=== PATIENT | male | born 1960 | race Caucasian/White ===

== ENCOUNTER 2020-12-12 19:09 | Emergency (ER) | payer OTHER ==
[~2020-12-12] VITALS: Ht 188 cm; Wt 94.3 kg
[~2020-12-12 19:09] MED LIST: ASPIR 8181 MG PO; BUPROPION XL300 MG PO; LISINOPRIL-HCT1 EACH PO; LORATADINE10 MG PO; OMEPRAZOLE20 MG PO; RESTASIS1 DROP OD; VITAMIN D400 UNI1 PO
== END 2020-12-12 20:36 | disposition home or self-care (01) ==
LOC: ED 19:09
DX: S81.811A Laceration without foreign body, right lower leg, initial encounter (principal); Z23 Encounter for immunization; W26.0XXA Contact with knife, initial encounter; I10 Essential (primary) hypertension; Z87.891 Personal history of nicotine dependence; Z79.899 Other long term (current) drug therapy; Z79.82 Long term (current) use of aspirin
CPT/HCPCS: 90471; 90715; 99282

== ENCOUNTER 2021-06-15 06:21 | Day surgery (SDC) | payer OTHER ==
[~2021-06-15] VITALS: Ht 182.9 cm; Wt 95.7 kg
--- NOTE | 2021-06-16 06:17 | OR ---
[facility] [address] [place] [place], [place] [address] Signed DATE OF OPERATION: 06/15/2021 SURGEON: Divya Villasenor MD PREOPERATIVE DIAGNOSES: 1. Iron-deficiency anemia. 2. Gastroesophageal reflux disease. 3. Colon cancer in his father in his 70s. 4. Daughter with rectal cancer at age 26. 5. Hemorrhoids. 6. Personal history of colonic polyps, age 46, 49, and 55. POSTOPERATIVE DIAGNOSES: 1. Hiatal hernia (36-33 cm). 2. GE junction at 32 cm. 3. Mild distal esophagitis with healing shallow ulcer. 4. A 4 mm polyp at 70 cm. 5. Minimal internal hemorrhoids. 6. 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 PROCEDURES: 1. Esophagogastroduodenoscopy with CLOtest and biopsies of the antrum and GE junction. 2. Colonoscopy with hot biopsy. ESTIMATED BLOOD LOSS: None. INDICATIONS: Julienne is a 61-year-old gentleman, asked to see me for both upper and lower endoscopy. More recently, he was found to have iron-deficiency anemia. He also has a history of acid reflux and he does have breakthrough symptoms on his Prilosec. In addition, his father had colon cancer in his late 70s and underwent surgery. He actually from something else, but did fine with the colon cancer. He did not require any chemotherapy. In addition, his daughter had rectal cancer at age [address] Davis did perform her surgery and she is doing well. Julienne is known to have some hemorrhoids along with colonic polyps removed at age 46, 49, and 55. He really has no specific lower GI complaints. In the office, I gave him pamphlets on both upper and lower endoscopy. We had reviewed the nature of the two tests. He understands there is risk including, but not limited to gas bloating, crampy abdominal pain, bleeding, perforation requiring surgery, and missed diagnosis. He also understands the need for the IV Electronically Signed By: DIVYA VILLASENOR MD 06/16/21 0617 PATIENT NAME: JULIENNE LARSEN OPERATIVE REPORT DATE OF : 62 REPORT #: [id number] PHYSICIAN: DIVYA VILLASENOR MD PCP: NO PRIMARY CARE PHYSICIAN REPORT IS CONFIDENTIAL AND NOT TO BE RELEASED WITHOUT AUTHORIZATION [facility] [address] [place], [place] [address] Signed conscious sedation. He always does well with Versed and fentanyl. He had expressed understanding, wished to proceed. DESCRIPTION OF PROCEDURE: Julienne was taken into our endoscopy suite and placed in the supine semi-recumbent position. The posterior oropharynx was anesthetized with lidocaine spray. A bite block was utilized for the case. He was given a total of 8 mg of Versed and 100 mcg of fentanyl to cover both cases. The adult gastroscope had been introduced and advanced down the third portion of the duodenum without difficulty. The duodenum and pyloric channel were unremarkable. Overall, the stomach was unremarkable. We went and took a biopsy of the antrum for CLOtest as well as pathologic review. Upon retroflexion of scope, we could easily see his moderate-sized hiatal hernia, it measured out roughly from 36 cm back to 33 cm. He does have a little disruption to the Z-line with esophagitis. There appears to be a small ulcer off to the side, it was healing. We went and took a biopsy along the Z-line. There was no Archibald's mucosa. His middle and upper esophagus were unremarkable. After this, the gas was suctioned out. The gastroscope removed. Julienne tolerated the upper endoscopy quite well. Julienne rotated into the left lateral decubitus position. He was maintained on IV sedation with the Versed and fentanyl. A digital rectal exam was performed. His prostate was indurated and the right was certainly larger than the left. After this, the adult colonoscope was introduced and advanced under direct visualization of camera. We did not see much in the way of any external hemorrhoids. The scope was advanced into the cecum without difficulty. As always, his prep was quite excellent. We could easily see his appendiceal orifice and the ileocecal valve. The scope was then slowly withdrawn. We took several pictures throughout for photodocumentation. He appears to have some very mild tiger striping throughout the colon. That would suggest he has mild melanosis coli. There was no diverticulosis. We saw one tiny polyp up at 70 cm. It was easily removed with the help of hot biopsy forceps. The rectum was unremarkable. Upon retroflexion of scope, he has minimal internal hemorrhoid columns. After this, the gas was suctioned out, colonoscope removed. Julienne tolerated the procedure quite well. RECOMMENDATIONS: I will see Julienne back in my office in 7 to 14 days to review his results. It appears that his esophagitis is the source of his anemia. He could consider increasing the medical therapy and/or fundoplication if his anemia persist. He will stay on the five year plan for his colonoscopies. Divya Villasenor MD Electronically Signed By: DIVYA VILLASENOR MD 06/16/21 0617 PATIENT NAME: JULIENNE LARSEN OPERATIVE REPORT DATE OF : 62 REPORT #: [id number] PHYSICIAN: DIVYA VILLASENOR MD PCP: NO PRIMARY CARE PHYSICIAN REPORT IS CONFIDENTIAL AND NOT TO BE RELEASED WITHOUT AUTHORIZATION [facility] [address] [place], [place] [address] Signed ALB/MODL /[id number] cc: Patient Chart MD Divya Gu MD Copies: IFRAH ROME MD, ANDREW L MD ~ Electronically Signed By: DIVYA VILLASENOR MD 06/16/21 0617 PATIENT NAME: JULIENNE LARSEN OPERATIVE REPORT DATE OF : 62 REPORT #: [id number] PHYSICIAN: DIVYA VILLASENOR MD PCP: NO PRIMARY CARE PHYSICIAN REPORT IS CONFIDENTIAL AND NOT TO BE RELEASED WITHOUT AUTHORIZATION
--- NOTE | 2021-06-17 15:41 | PATH ---
[facility] [address] [place], [place] [address] Signed SPECIMEN(S): A ANTRUM/PYLORUS BIOPSY SPECIMEN(S): B GE JUNCTION BIOPSY SPECIMEN(S): C COLON POLYP AT 70 CM SPECIMEN SOURCE: A. ANTRUM/PYLORUS BIOPSY B. GE JUNCTION BIOPSY C. COLON POLYP AT 70 CM CLINICAL HISTORY: Family Hx colon CA, hemorrhoids, GERD, anemia. Post Op: Hiatal hernia, mild esophagitis, polyp, internal hemorrhoids. FINAL PATHOLOGIC DIAGNOSIS: A. Stomach, antrum/pylorus, biopsy: - No significant histopathologic alterations. B. GE junction, biopsy: - Reflux esophagitis. - No evidence of Archibald's esophagus. C. Colon, 70 cm, polypectomy: - Tubular adenoma. - There is no evidence of high-grade dysplasia or malignancy. COMMENT: Regarding specimen A, the sections through the gastric biopsies show fragments of histologically unremarkable antral mucosa. There is no evidence of acute or chronic inflammation. There is no evidence of H. pylori, intestinal metaplasia, abnormal infiltrates or neoplasia. Regarding specimen B, the sections through the biopsy show strips of reactive appearing squamous mucosa with basal cell hyperplasia. The epithelium is infiltrated by lymphocytes and small numbers of eosinophils. No glandular mucosa or intestinal metaplasia is identified. A special stain (Alcian Blue/PAS) highlights the thickened basal layer and confirms the absence of glandular mucosa. PRAKASH:louise:C2NR MICROSCOPIC EXAMINATION: Histologic sections of all submitted blocks are examined by light microscopy. These findings, together with the gross examination, support the pathologic diagnosis. PATIENT NAME: JULIENNE LARSEN PATHOLOGY DATE OF : 62 REPORT #: [id number] PHYSICIAN: KATE GORDON PCP: NO PRIMARY CARE PHYSICIAN REPORT IS CONFIDENTIAL AND NOT TO BE RELEASED WITHOUT AUTHORIZATION [facility] [address] [place], [place] [address] Signed GROSS DESCRIPTION: Three specimens are received in three containers, labeled "JK." A. The specimen, labeled "JK, antrum biopsy," is received in formalin and consists of one hugo soft tissue fragment that measures 0.2 cm in greatest dimension. The specimen is entirely submitted in cassette (A1). B. The specimen, labeled "JK, GE junction biopsy," is received in formalin and consists of one hugo soft tissue fragment that measures 0.3 cm in greatest dimension. The specimen is entirely submitted in cassette (B1). C. The specimen, labeled "JK, colon polyp at 70 cm," is received in formalin and consists of one hugo soft tissue fragment that measures 0.2 cm in greatest dimension. The specimen is entirely submitted in cassette (C1). JS (under the direct supervision of a pathologist) The Gross Description was prepared using a voice recognition system. The report was reviewed for accuracy; however, sound-alike word errors, addition and/or deletions may occur. If there is any question about this report, please contact Client Services. PERFORMING LABORATORY: The technical component was performed by [facility], [address] [place] [id number] (CLIA# [id number]). The professional interpretation was performed by [facility], [facility], [address] [place] [address] (CLIA#: [id number]). Diagnostician: Matti Cardoza MD Pathologist Electronically Signed 06/17/2021 Copies: ~ PATIENT NAME: JULIENNE LARSEN PATHOLOGY DATE OF : 62 REPORT #: [id number] PHYSICIAN: KATE GORDON PCP: NO PRIMARY CARE PHYSICIAN REPORT IS CONFIDENTIAL AND NOT TO BE RELEASED WITHOUT AUTHORIZATION
== END 2021-06-15 08:43 | disposition home or self-care (01) ==
LOC: OPS 06:21 → DS 06:21 → OPS 07:00 → DS 07:00 → OPS 08:43
PROVIDERS: ATTEND Colon & Rectal Surgery
PROC: 0DB68ZX Excision of Stomach, Via Natural or Artificial Opening Endoscopic, Diagnostic (ICD-10-PCS; principal; 2021-06-15 07:00)
PROC: 0DBE8ZX Excision of Large Intestine, Via Natural or Artificial Opening Endoscopic, Diagnostic (ICD-10-PCS; 2021-06-15 07:00)
DX: K21.00 Gastro-esophageal reflux disease with esophagitis, without bleeding (principal); D12.6 Benign neoplasm of colon, unspecified; D50.9 Iron deficiency anemia, unspecified; K64.8 Other hemorrhoids; Z80.0 Family history of malignant neoplasm of digestive organs; I10 Essential (primary) hypertension; F33.41 Major depressive disorder, recurrent, in partial remission; Z88.1 Allergy status to other antibiotic agents; K64.4 Residual hemorrhoidal skin tags; K44.9 Diaphragmatic hernia without obstruction or gangrene
CPT/HCPCS: 36415; 87077; 99153; G0500; J2250; J3010; J7121

== ENCOUNTER 2023-03-14 06:32 | Day surgery (SDC) | payer OTHER ==
[~2023-03-14] VITALS: Ht 188 cm; Wt 99.3 kg
[~2023-03-14 06:32] MED LIST changes: +SUCRALFATE1 GM PO
[2023-03-14 06:50] VITALS: BP 143/86
--- NOTE | 2023-03-14 07:37 | NUR ---
ROUNDS. PT GONE FOR PROCEDURE. PROVIDED PRAYER.
[2023-03-14 08:17] VITALS: BP 116/79
--- NOTE | 2023-03-14 08:34 | NUR ---
03/14/23 0834 Marissa Gibbs 0755 PT ARRIVED IN PACU WIDE AWAKE WITH NO C/O'S. 0810 DR AT BEDSIDE. ALL QUESTIONS ANSWERED. 0815 SIPPING ON WATER. 0820 DC INSTRUCTIONS GIVEN. 0825 LEFT VIA W/C.
--- NOTE | 2023-03-14 09:37 | OR ---
[facility] [address] [place], [place] [address] Signed DATE OF OPERATION: 03/14/2023 SURGEON: Divya Villasenor MD PREOPERATIVE DIAGNOSES: 1. Recurrent iron-deficiency anemia. 2. Gastroesophageal reflux disease. 3. Hiatal hernia (3 cm). 4. Gastroesophageal junction at 32 cm. 5. History of distal esophagitis with shallow ulcer in 2021. POSTOPERATIVE DIAGNOSES: 1. Hiatal hernia (25-32) cm. 2. Gastroesophageal junction at 32 cm. 3. Small diverticulum at gastroesophageal junction biopsy and clip. 4. Small inflamed polyp at gastroesophageal junction (snare). 5. Proximal antral polyp (snare). 6. Mild diffuse gastritis. PROCEDURES: 1. Esophagogastroduodenoscopy with CLOtest and biopsies of the antrum, antral polyp, gastroesophageal junction and gastroesophageal junction polyp as well as base of gastroesophageal junction polyp. 2. Application of clip at gastroesophageal junction. ESTIMATED BLOOD LOSS: None. INDICATIONS: Julienne is a 62-year-old gentleman, asked to see me for repeat upper endoscopy. He has developed recurrent iron-deficiency anemia. He usually comes every five years for his colonoscopies. He has had at least four different colonoscopies starting around age 46. He generally has small polyps removed. He has been a combination of hyperplastic, serrated adenomatous and tubular adenomatous polyps. They have all been under 10 mm in size. He has internal and external hemorrhoids. In June of 2021, we helped him with upper endoscopy. He had a 3 cm hiatal hernia with esophagitis and shallow healing ulcer in his distal esophagus. He has been doing well on his omeprazole once a day. He continues to be on aspirin 81 mg each day. He was hunting this fall and was feeling dyspnea on exertion. Repeat blood work showed that once again he had iron-deficiency anemia. He increased the omeprazole twice a day and started on sucralfate. He went Electronically Signed By: DIVYA VILLASENOR MD 03/14/23 0937 PATIENT NAME: JULIENNE LARSEN OPERATIVE REPORT DATE OF : 62 REPORT #: [id number] PHYSICIAN: DIVYA VILLASENOR MD PCP: RINA OLIVARES REPORT IS CONFIDENTIAL AND NOT TO BE RELEASED WITHOUT AUTHORIZATION [facility] [address] [place], [place] [address] Signed back on his iron supplementation. He said he is feeling better. He said he has no lower GI complaints. He was asked to come back and see me for upper endoscopy by his primary care provider. In the office, I gave him a pamphlet on upper endoscopy. We had reviewed that together. He understands the nature of the test. There is risk including, but not limited to gas bloating, crampy abdominal pain, bleeding, perforation requiring surgery, and missed diagnosis. He has also done well with Versed and fentanyl in the past. He understands that an adult person has to take him home afterwards. He had expressed understanding and wished to proceed. DESCRIPTION OF PROCEDURE: Julienne was taken into our endoscopy suite and placed in the supine semi-recumbent position. The posterior oropharynx was anesthetized with lidocaine spray. A bite block was utilized for the case. The adult gastroscope was introduced and advanced under direct visualization of camera. He was given a total of 100 mcg of fentanyl and 5 mg of Versed to cover the case. His duodenum and pyloric channel were unremarkable. He has very minimal inflammatory changes in his stomach, much improved over 2021. No ulcerations in the pyloric bulb or the stomach. He has several polyps, most likely from his proton pump inhibitor in the proximal portion of the stomach. We took out one with the hot snare and sent it off for pathologic review. Once again, we can see his moderate-sized hiatal hernia. We withdrew the scope up through, and we looked very carefully throughout his hiatal hernia and not see any evidence of an ulcer or Ilsha-Andrews tear. His GE junction once again is at 32 cm. He has moderate disruption to the Z-line. No obvious Archibald mucosa. He did have an inflammatory polyp to one side on the edge of the Z-line, so we took that off with the snare and sent it for pathologic review. We then used a hot biopsy forceps to biopsy and cauterize the base of that polyp as well. We took a biopsy along the edge of this diverticulum where it joins the Z-line. That bled just a bit, so we applied a clip with good results. No distal esophagitis on this occasion. His middle and upper esophagus were quite unremarkable. We saw no ulceration specifically in his esophagus. After this, the gas was suctioned out, the gastroscope removed. Julienne tolerated the procedure quite well. RECOMMENDATIONS: I will see Julienne back in my office in 7 to 14 days to review his results. He is going to hold the aspirin for at least one week. Divya Villasenor MD ALB/MODL Electronically Signed By: DIVYA VILLASENOR MD 03/14/23 0937 PATIENT NAME: JULIENNE LARSEN OPERATIVE REPORT DATE OF : 62 REPORT #: [id number] PHYSICIAN: DIVYA VILLASENOR MD PCP: RINA OLIVARES REPORT IS CONFIDENTIAL AND NOT TO BE RELEASED WITHOUT AUTHORIZATION [address] [place] [address] Signed /[id number] cc: MD Rina Varela Patient Chart Copies: DIVYA VILLASENOR MD ~ Electronically Signed By: DIVYA VILLASENOR MD 03/14/23 0937 PATIENT NAME: JULIENNE LARSEN OPERATIVE REPORT DATE OF : 62 REPORT #: [id number] PHYSICIAN: DIVYA VILLASENOR MD PCP: RINA OLIVARES REPORT IS CONFIDENTIAL AND NOT TO BE RELEASED WITHOUT AUTHORIZATION
--- NOTE | 2023-03-20 16:14 | PATH ---
[facility] [address] [facility] [place], [place] [address] Signed SPECIMEN(S): A ANTRUM/PYLORUS BIOPSY SPECIMEN(S): B PROXIMAL ANTRUM/PYLORUS POLYP SPECIMEN(S): C ESOPHAGEAL BIOPSY SPECIMEN(S): D ESOPHAGEAL POLYP SPECIMEN(S): E STOMACH POLYP SPECIMEN SOURCE: A. ANTRUM/PYLORUS BIOPSY B. PROXIMAL ANTRUM/PYLORUS POLYP C. ESOPHAGEAL BIOPSY D. ESOPHAGEAL POLYP E. STOMACH POLYP CLINICAL HISTORY: Esophagitis FINAL PATHOLOGIC DIAGNOSIS: A. Antrum/pylorus, biopsy: - Benign gastric type mucosa with focal slight chronic inflammation. - Negative for evidence of Helicobacter organisms on routine HE stained sections. B. Proximal antrum/pylorus polyp: - Benign polypoid gastric type mucosa with slight superficial epithelial erosion and minimal superficial chronic inflammation. - A Helicobacter pylori immunostain is negative for organisms. C. Esophageal biopsy: - Esophageal and glandular type mucosa with extensive biopsy site changes, limiting the evaluation. (see comment) D. Esophageal polyp: - Esophageal and gastric type epithelium with reactive features and chronic inflammation. - Negative for specialized intestinal metaplasia or dysplasia. E. Stomach polyp: - Polypoid type mucosa with intestinal metaplasia and atypical glandular features indefinite for mild dysplasia - Epithelial erosion with granulation formation and mixed acute and chronic inflammation. - A Helicobacter pylori immunostain is negative for organisms. COMMENT: PATIENT NAME: JULIENNE LARSEN PATHOLOGY DATE OF : 62 REPORT #: [id number] PHYSICIAN: [facility]ATE PATHOLOGY PCP: SHARAN OLIVARES REPORT IS CONFIDENTIAL AND NOT TO BE RELEASED WITHOUT AUTHORIZATION [facility] [address] [place], [place] [address] Signed C. There is extensive biopsy site changes extensively limiting the evaluation. It is impossible to evaluate for intestinal metaplasia or dysplasia on the glandular component. The squamous epithelium appears negative for eosinophils or dysplasia. Clinical correlation is requested and if concern persists additional sampling should be considered. As Part of the [employer] Chef'S Assistant Program, the case has been reviewed by a second Pathologist. JVR:LAURA:aggie MICROSCOPIC EXAMINATION: Histologic sections of all submitted blocks are examined by light microscopy. These findings, together with the gross examination, support the pathologic diagnosis. B. A Helicobacter pylori immunostain is performed with appropriate positive and negative controls on block B1 and is negative for organisms. E. A Helicobacter pylori immunostain is performed with appropriate positive and negative controls on block E1 and is negative for organisms. JVR:aggie IADDITIONAL NOTES: Immunohistochemical and/or in situ hybridization studies were performed on this case with the appropriate positive controls that react as expected. This test was developed and its performance characteristics determined by [employer] It has not been cleared or approved by the U.S. Food and Drug Administration. The FDA has determined that such clearance or approval is not necessary. This test is used for clinical purposes. It should not be regarded as investigational or for research. [employer] is certified under the Clinical Laboratory Improvement Amendments of 1988 (CLIA) as qualified to perform high complexity clinical laboratory testing. This assay has not been validated for specimens that have been decalcified. GROSS DESCRIPTION: A. The specimen, labeled and designated "[place], antrum/pylorus biopsy," is received in formalin and consists of one hugo soft tissue fragment, 0.3 cm. Entirely submitted in (A1). B. The specimen, labeled and designated "[place], proximal antrum/pylorus biopsy," is received in formalin and consists of one hugo soft tissue fragment, 0.8 cm. Entirely submitted in (B1). C. The specimen, labeled and designated "[place], esophageal biopsy," is received in formalin and consists of three hugo soft tissue fragments, ranging PATIENT NAME: JULIENNE LARSEN PATHOLOGY DATE OF : 62 REPORT #: [id number] PHYSICIAN: KATE GORDON PCP: SHARAN OLIVARES REPORT IS CONFIDENTIAL AND NOT TO BE RELEASED WITHOUT AUTHORIZATION [facility] [address] [place], [place] [address] Signed from 0.1-0.2 cm. Entirely submitted in (C1). D. The specimen, labeled and designated "[place], esophageal polyp," is received in formalin and consists of one hugo soft tissue fragment, 0.3 cm. Entirely submitted in (D1). E. The specimen, labeled and designated "[place], stomach polyp," is received in formalin and consists of three hugo soft tissue fragments, ranging from 0.1-0.2 cm. Entirely submitted in (E1). VB (under the direct supervision of a pathologist) The Gross Description was prepared using a voice recognition system. The report was reviewed for accuracy; however, sound-alike word errors, addition and/or deletions may occur. If there is any question about this report, please contact Client Services. PERFORMING LABORATORY: Technical component was performed by [facility] [address] [place] [id number] (CLIA# [id number]). Professional interpretation was performed by [facility] - [facility], [address] [place] [id number] (CLIA#: [id number]). Diagnostician: Lobo Khan MD Pathologist Electronically Signed 03/20/2023 Copies: ~ PATIENT NAME: JULIENNE LARSEN PATHOLOGY DATE OF : 62 REPORT #: [id number] PHYSICIAN: [facility] PCP: SHARAN OLIVARES REPORT IS CONFIDENTIAL AND NOT TO BE RELEASED WITHOUT AUTHORIZATION
== END 2023-03-14 08:25 | disposition home or self-care (01) ==
LOC: DS 06:32 → OPS 06:32 → DS 07:30 → OPS 08:25
PROVIDERS: ATTEND Colon & Rectal Surgery
PROC: 0DB68ZX Excision of Stomach, Via Natural or Artificial Opening Endoscopic, Diagnostic (ICD-10-PCS; 2023-03-14)
PROC: 0DB58ZX Excision of Esophagus, Via Natural or Artificial Opening Endoscopic, Diagnostic (ICD-10-PCS; principal; 2023-03-14 07:30)
DX: K29.70 Gastritis, unspecified, without bleeding (principal); K57.30 Diverticulosis of large intestine without perforation or abscess without bleeding; K31.7 Polyp of stomach and duodenum; K44.9 Diaphragmatic hernia without obstruction or gangrene; I10 Essential (primary) hypertension; D50.9 Iron deficiency anemia, unspecified
CPT/HCPCS: 36415; 87077; 99153; G0500; J2250; J3010; J7121